=== PATIENT | male | born 1950 ===

== ENCOUNTER → 2021-06-02 10:58 | Outpatient (BNVA) | payer MEDICARE, MEDICAID, SELFPAY | PROVIDERS: PCP Psychiatry & Neurology Neurology; Visit Provider Psychiatry & Neurology Neurology | DX: G24.3 Spasmodic torticollis (principal) | CPT/HCPCS: 64616; 99211 ==

== ENCOUNTER → 2021-09-04 14:20 | Outpatient (BNVA) | payer MEDICARE, MEDICAID, SELFPAY | PROVIDERS: PCP Family Medicine; Visit Provider Psychiatry & Neurology Neurology | DX: G24.3 Spasmodic torticollis (principal) | CPT/HCPCS: 64616; 99211; J0585 ==

== ENCOUNTER → 2021-12-08 14:57 | Outpatient (BNVA) | payer MEDICARE, MEDICAID, SELFPAY | PROVIDERS: PCP Family Medicine; Visit Provider Psychiatry & Neurology Neurology | DX: G24.3 Spasmodic torticollis (principal) | CPT/HCPCS: 64616; 99211; J0585 ==

== ENCOUNTER → 2022-04-20 14:19 | Outpatient (BNVA) | payer MEDICARE, MEDICAID, SELFPAY | PROVIDERS: PCP Family Medicine; Visit Provider Psychiatry & Neurology Neurology | DX: G24.3 Spasmodic torticollis (principal) | CPT/HCPCS: 99212 ==

== ENCOUNTER → 2022-06-22 15:16 | Outpatient (BNVA) | payer MEDICARE, MEDICAID, SELFPAY | PROVIDERS: PCP Family Medicine; Visit Provider Psychiatry & Neurology Neurology | DX: G24.3 Spasmodic torticollis (principal) | CPT/HCPCS: 99212 ==

== ENCOUNTER 2022-12-20 15:13 | Outpatient (AMB) | payer MEDICARE, MEDICAID, SELFPAY ==
[2022-12-20 15:17] VITALS: BP 136/78; PULSE 65; O2SAT 97; BMI 33.8
--- NOTE | 2022-12-20 15:17 | MHC.OFFVIS ---
Intake Vital Signs 12/20/22 15:17 Height 5 ft 10 in Weight 235 lb 6 oz BMI 33.8 BP 136/78 Blood Pressure Location Rt brachial Position Sitting Pulse 65 Pulse Source Pulse Oximeter Pulse Oximetry (%) 97 Oxygen Delivery Method Room Air Intake Visit Reasons: 6m follow up-CONFIRMED Intake Note: Pt presents as a 6m f/u. 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 His neck is stable - he has turning but range of motion is good. No painHe used to be on Botox for neck and did well. After his November 2021 injection he started having bad taste which lasted 2-3 months. He wanted to hold off on the botox for now. His neck is feeling better than baseline dystonia He still has neck dystonia when he is doing some activities like walking or working around the house. He denies swallowing issues. He feels good without BOtox and wants to stay off on it. [facility] Medical History Diabetes Hx of cataract Hyperlipidemia Surgical History Hx of cataract surgery Family History Father No problems noted. Mother No problems noted. Social History Alcohol intake: current Alcohol intake frequency: a few times a month Patient Tobacco Use Status: Former Tobacco user Use of substances other than those prescribed or required for medical reasons: No Physical Exam Vital Signs: Last Vital Signs Pulse 65 12/20/22 15:17 BP 136/78 12/20/22 15:17 Pulse Ox 97 12/20/22 15:17 Oxygen Delivery Method Room Air 12/20/22 15:17 BMI result Body Mass Index 33.8 Const Orientation/consciousness: patient oriented x3 Neck Other: moderate left torticollis, modeate right laterocollis , rare tremors and mild antecollis( better than before) Range of motion mildly decreased Neuro General: patient oriented x3, gait normal, tone normal and moves all extremities Motor exam (neuro): 5/5 motor strength present throughout Assessment & Plan Assessment & Plan (1) Spasmodic torticollis: Code(s): G24.3 - Spasmodic torticollis Plan will monitor clinically and restart botox if needed Patient will call if his dystonia worsens Coding Level of Care Code Est Pt Level 3 (46924) Diagnoses Spasmodic torticollis G24.3
== END 2022-12-20 15:38 | disposition home or self-care (01) ==
PROVIDERS: Visit Provider Psychiatry & Neurology Neurology
DX: G24.3 Spasmodic torticollis (principal)
CPT/HCPCS: 99213

== ENCOUNTER → 2022-12-20 15:13 | Outpatient (BNVA) | payer MEDICARE, MEDICAID, SELFPAY | PROVIDERS: Visit Provider Psychiatry & Neurology Neurology | DX: G24.3 Spasmodic torticollis (principal) | CPT/HCPCS: 99212 ==